=== PATIENT | female | born 1950 | race Caucasian/White ===

== ENCOUNTER 2021-06-24 13:36 | Observation (INO) ==
[2021-06-24] MEDS ORDERED: GI Cocktail 40 ML EACH PO ONE (14:04)
[2021-06-24 14:26] LABS: Basophils % 0.2 %; Eosinophils % 0.1 %; Hemoglobin 10.6 g/dL (11.5-15.4); Immature Granulocytes % 0.3 % (0-4); Lymphocytes # 1.6 K/mcL (0.6-4.6); Lymphocytes % 15.8 %; Mean Corpuscular HGB Conc 33.1 g/dL (31.6-35.5); Mean Corpuscular Volume 84.7 fL (83.0-100.0); Mean Platelet Volume 8.5 fL (9.4-12.4); Monocytes # 0.7 K/mcL (0.0-1.3); Monocytes % 6.8 %; Neutrophils # 7.8 K/mcL (1.6-8.9); Platelet Count 486 K/mcL (140-400); Red Blood Count 3.78 M/mcL (3.82-4.97); Red Cell Distribution Width 13.6 % (11.5-14.5); Segmented Neutrophils % 76.8 %; White Blood Count 10.1 K/mcL (4.3-11.1)
[2021-06-24 14:44] LABS: Alanine Aminotransferase 11 Units/L (7-52); Albumin 4.2 g/dL (3.5-5.7); Albumin/Globulin Ratio 1.8 (1.1-2.2); Alkaline Phosphatase 84 Units/L (34-104); Aspartate Amino Transferase 11 Units/L (13-39); BUN/Creatinine Ratio 14 (6-26); Bilirubin,Total 0.9 mg/dL (0.3-1.0); Blood Urea Nitrogen 8 mg/dL (8-23); Calcium 10.1 mg/dL (8.6-10.3); Carbon Dioxide 28 mEq/L (23-29); Chloride 86 mEq/L (98-107); Globulin 2.4 g/dL (2.4-3.5); Glucose 189 mg/dL (70-105); Osmolality,Calculated 257 (280-300); Potassium 3.5 mEq/L (3.5-5.1); Sodium 122 mEq/L (136-145); Total Protein 6.6 g/dL (6.4-8.9); eGFR For African Americans > 60 (> 60); eGFR For Non-African Americans > 60 (> 60)
[2021-06-24 14:48] LABS: Troponin I < 0.03 ng/mL (< 0.04)
[2021-06-24] MEDS ORDERED: Naloxone 0.4 MG/ML INJ IVP PRN (15:23)
[2021-06-24] MEDS ORDERED: Acetaminophen 325 MG TABLET PO PRN (15:23)
[2021-06-24] MEDS ORDERED: Ondansetron ODT 4 MG TAB.RAPDIS SL PRN (15:23)
[2021-06-24] MEDS ORDERED: Dextrose Gel 15 GM/37.5 ML TUBE PO PRN ×2 (15:50)
[2021-06-24] MEDS ORDERED: D5% in Water 1,000 ML IVC PRN (15:50)
[2021-06-24] MEDS ORDERED: *HR* Dextrose 50 % in Water (Syg) 50 ML SYRINGE IVP PRN (15:50)
[2021-06-24] MEDS: Insulin LISPRO 300 UNITS/3 ML VIAL SUBQ SCH (18:13)
[2021-06-24] MEDS: *HR* Metformin 500 MG TABLET PO SCH (18:18)
[2021-06-24] MEDS ORDERED: Insulin LISPRO 300 UNITS/3 ML VIAL SUBQ SCH (21:00)
[2021-06-25 03:26] VITALS: RESP 18
[2021-06-25 07:15] LABS: VBG Ionized Calcium 1.26 mmol/L (1.15-1.35)
[2021-06-25] MEDS: Insulin LISPRO 300 UNITS/3 ML VIAL SUBQ SCH ×2 (07:46→09:23)
[2021-06-25 07:50] LABS: Hematocrit 31.8 % (35.3-44.9); Hemoglobin 10.5 g/dL (11.5-15.4); Mean Corpuscular Hemoglobin 28.5 pg (28.0-33.3); Mean Corpuscular Volume 86.2 fL (83.0-100.0); Mean Platelet Volume 8.9 fL (9.4-12.4); Platelet Count 492 K/mcL (140-400); Red Blood Count 3.69 M/mcL (3.82-4.97); Red Cell Distribution Width 13.9 % (11.5-14.5)
[2021-06-25 08:08] LABS: BUN/Creatinine Ratio 16 (6-26); Blood Urea Nitrogen 9 mg/dL (8-23); Carbon Dioxide 30 mEq/L (23-29); Chloride 92 mEq/L (98-107); Glucose 116 mg/dL (70-105); Magnesium 1.6 mg/dL (1.6-2.6); Osmolality,Calculated 268 (280-300); Phosphorous 3.2 mg/dL (2.7-4.5); Potassium 3.7 mEq/L (3.5-5.1); Sodium 129 mEq/L (136-145); eGFR For African Americans > 60 (> 60); eGFR For Non-African Americans > 60 (> 60)
[2021-06-25] MEDS ORDERED: hydroCHLOROthiazide 25 MG TABLET PO SCH (09:00)
[2021-06-25] MEDS ORDERED: Aspirin 81 MG TAB.CHEW PO SCH (09:00)
[2021-06-25] MEDS ORDERED: Loratadine 10 MG TABLET PO SCH (09:00)
[2021-06-25] MEDS: *HR* Metformin 500 MG TABLET PO SCH (09:19)
[2021-06-25 10:21] VITALS: BP 129/69; PULSE 73; TEMP 97.5
[2021-06-25 11:55] VITALS: O2SAT 96
== END 2021-06-25 14:26 | disposition home or self-care (01) ==
LOC: INPPIK 13:36 → EMEROOPIK 13:36 → INPPIK 17:37
PROVIDERS: ADMIT Family Medicine; ATTEND Family Medicine